=== PATIENT | male | born 1995 | race Native Hawaiian/Other Pacific Islander ===

== ENCOUNTER 2017-03-19 21:12 | Emergency (ER) | payer SELFPAY ==
[2017-03-19] MEDS ORDERED: Sodium Chloride 0.9% 1,000 ML IV ONE (21:43)
[2017-03-19] MEDS ORDERED: Sodium Chloride 0.9% 1,000 ML ONE (21:55)
[2017-03-19 22:07] LABS: URINE BILIRUBIN NEGATIVE (NEGATIVE); URINE BLOOD NEGATIVE (NEGATIVE); URINE CLARITY Clear (Clear); URINE COLOR Colorless (YELLOW); URINE GLUCOSE (UA) NORMAL (Normal); URINE LEUKOCYTE ESTERASE NEG Leu/uL (Negative); URINE NITRATE NEGATIVE (NEGATIVE); URINE PROTEIN NEGATIVE (NEGATIVE); URINE UROBILINOGEN NORMAL mg/dL (0.2-1.0)
[2017-03-19 22:18] LABS: BASO # 0.1 K/uL (0.0-0.2); BASO % 0.6 % (0.0-2.0); EOS # 0.1 K/uL (0.0-0.7); EOS % 1.7 % (0.0-4.0); HEMOGLOBIN 15.3 g/dL (12.0-18.0); LYMPH # 1.8 K/uL (1.0-4.3); LYMPH % 21.3 % (20.0-40.0); MEAN CELL VOLUME 84.7 fL (80.0-94.0); MEAN CORPUSCULAR HEMOGLOBIN 28.6 pg (27.0-31.0); MEAN CORPUSCULAR HGB CONC 33.7 g/dL (33.0-37.0); MEAN PLATELET VOLUME 7.4 fL (7.2-11.7); MONO # 0.8 K/uL (0.0-0.8); MONO % 9.1 % (0.0-10.0); NEUT # 5.7 K/uL (1.8-7.0); NEUT % 67.3 % (50.0-75.0); NRBC % 0.1 % (0.0-2.0); RBC 5.37 Mil/uL (4.40-5.90); RED CELL DISTRIBUTION WIDTH 12.4 % (11.5-14.5); WHITE BLOOD COUNT 8.4 K/uL (4.8-10.8)
[2017-03-19 22:19] LABS: BARBITURATES, UR NEGATIVE (NEGATIVE); BENZODIAZEPINES, UR NEGATIVE (NEGATIVE); OPIATES, UR NEGATIVE (NEGATIVE); PHENCYCLIDINE, UR NEGATIVE (NEGATIVE)
[2017-03-19 22:30] LABS: BLOOD UREA NITROGEN 9 mg/dL (9-20); CALCIUM 8.9 mg/dl (8.6-10.4); GFR AFRICAN-AMERICAN > 60; GFR NON-AFRICAN AMERICAN > 60
[2017-03-19 23:05] VITALS: BP 113/68; PULSE 74; RESP 16; TEMP 97.6; O2SAT 98
--- NOTE | 2017-03-19 23:26 | C.PDOC ---
History Of Present Illness 21 yo male come in for evaluation of intermittent headache for past few weeks. Pt sts, developed some chest pain early today associated with extreme fatigue. Pt also reports, some tingling over his B/L feet. MOm at bedside, reports, " he was not sleeping well", also reports hx of anxiety. As per mom, pt has intermittent CP for past few years. Mom sts, pt was seen by PMD year ago when EKG, ECHO performed with normal results. Otherwise, pt denies recent illness, fever, chills, denies severe headache, dizziness, visual changes, focal deficits , neck pain, drooling, SOB, radiation of CP, palpitation, diaphoresis, abd. pain , V/Dm back pain, UTI sx, denies drug use. Ambulate to Ed for evaluation, not in any apparent distress. Time Seen by Provider: 03/19/17 21:33 Chief Complaint (Nursing): Headache History Per: Patient, Family Past Medical History Reviewed: Historical Data, Nursing Documentation, Vital Signs Vital Signs: Last Vital Signs Temp 97.6 F 03/19/17 23:04 Pulse 74 03/19/17 23:04 Resp 16 03/19/17 23:04 BP 113/68 03/19/17 23:04 Pulse Ox 98 03/19/17 23:04 - Medical History PMH: No Chronic Diseases Surgical History: No Surg Hx Family History: States: No Known Family Hx - Social History Hx Alcohol Use: No Hx Substance Use: No - Immunization History Hx Tetanus Toxoid Vaccination: No Hx Influenza Vaccination: No Hx Pneumococcal Vaccination: No Review Of Systems Except As Marked, All Systems Reviewed And Found Negative. Constitutional: Negative for: Fever, Chills Eyes: Negative for: Vision Change ENT: Negative for: Ear Discharge, Nose Discharge, Nose Congestion, Throat Pain Cardiovascular: Positive for: Chest Pain. Negative for: Palpitations, Orthopnea , Edema, Light Headedness Respiratory: Negative for: Cough, Shortness of Breath, Wheezing Gastrointestinal: Negative for: Nausea, Vomiting, Abdominal Pain, Diarrhea Genitourinary: Negative for: Dysuria, Frequency Musculoskeletal: Negative for: Neck Pain, Back Pain Neurological: Positive for: Numbness. Negative for: Altered Mental Status, Dizziness Physical Exam - Physical Exam Appears: Well, Non-toxic, No Acute Distress Skin: Normal Color, Warm, Dry, No Rash Head: Normacephalic Eye(s): bilateral: PERRL Ear(s): Bilateral: Normal Nose: No Flaring Oral Mucosa: Moist, No Drooling Tongue: Normal Appearing Lips: Normal Appearing Throat: No Erythema, No Exudate, No Drooling Neck: Trachea Midline, Supple, Other ((-) meningeal sign) Cardiovascular: Rhythm Regular, No Murmur, No JVD Respiratory: No Decreased Breath Sounds, No Accessory Muscle Use, No Stridor, No Wheezing Gastrointestinal/Abdominal: Soft, No Tenderness, No Distention, No Guarding Back: No CVA Tenderness, No Vertebral Tenderness Extremity: Normal ROM, No Pedal Edema, No Deformity, No Swelling Neurological/Psych: Oriented x3, Normal Speech, Normal Cognition, Normal Motor, Normal Sensation, Normal Reflexes ED Course And Treatment - Laboratory Results Result Diagrams: 03/19/17 22:09 03/19/17 22:09 Lab Interpretation: Normal ECG: Interpreted By Me, Viewed By Me (and ) ECG Rhythm: Sinus Rhythm ECG Interpretation: Normal O2 Sat by Pulse Oximetry: 98 Pulse Ox Interpretation: Normal - Radiology CXR: Interpreted by Me, Viewed By Me CXR Interpretation: Yes: No Acute Disease Progress Note: On re-evaluation, pt is afebrile, hemodynamicaly stable. Non- toxic. Ambulatoyr in ED with stable giat. PulseOx 98% RA Neck: Supple, (-) JVD, (-) carotid bruits B/L. ENT: no acute findings. Lungs: CTA B/L, BS equal B/L. CVS: (+)S1S2, reg. Abd: benign, (-) guaridng, (-) rebound. neuorlogical intact. Blood work review and appears normal. CXR, EKG_ normal study, Influenza (-). Pt and mom advised. REf. to F/u with PMD in 2-3 days for re-eavl. return if any new changes. Disposition Counseled Patient/Family Regarding: Studies Performed, Diagnosis, Need For Followup - Disposition Referrals: [facility] [Outside] Disposition: HOME/ ROUTINE Disposition Time: 23:23 Condition: STABLE Additional Instructions: FOLLOW UP WITH PMD IN 2-3 DAYS FOR RE-EVALUATION. RETURN TO ED IF ANY WORSENING OR NEW CHANGES. Instructions: Fatigue (ED) Forms: [employer] (Honduran) - Clinical Impression Clinical Impression: Headache, Fatigue
--- NOTE | 2017-03-20 09:12 | RAD ---
Chest x-ray two views History: Shortness of breath. Comparison: None available. Findings: No focal infiltrate or effusion. Heart size within normal limits. Impression: No focal infiltrate or effusion.
--- NOTE | 2017-03-20 14:58 | CARD ---
APPROVED REPORT EKG Measurement Heart [id number] CO 150P47 [id number] <Conclusion> Normal sinus rhythm Right axis deviation Abnormal ECG
== END 2017-03-19 23:56 | disposition home or self-care (01) ==
LOC: C.ER 21:12
DX: R51 Headache (principal); R53.83 Other fatigue
CPT/HCPCS: 71046; 80048; 81001; 84484; 85025; 87804; 93005; 99285; G0480; J7040

== ENCOUNTER 2017-07-09 11:08 | Emergency (ER) | payer SELFPAY ==
[2017-07-09 11:18] VITALS: BP 123/73; PULSE 73; RESP 18; TEMP 98.4; O2SAT 98
--- NOTE | 2017-07-09 12:30 | C.PDOC ---
History Of Present Illness 22 y/o male presents to the ED complaining of left parasternal chest discomfort , onset today. Patient states pain has been intermittent for the past several months. He was evaluated for the same complaint in March. Of note, patient plays video games nightly but denies activities such as manual labor or heavy lifting. Denies any associated palpitations, SOB, dizziness, headache, visual changes, or leg pain/swelling. Time Seen by Provider: 07/09/17 12:22 Chief Complaint (Nursing): Chest Pain History Per: Patient History/Exam Limitations: no limitations Onset/Duration Of Symptoms: Intermittent Episodes Current Symptoms Are (Timing): Still Present Past Medical History Reviewed: Historical Data, Nursing Documentation, Vital Signs Vital Signs: Last Vital Signs Temp 98.4 F 07/09/17 11:15 Pulse 73 07/09/17 11:15 Resp 18 07/09/17 11:15 BP 123/73 07/09/17 11:15 Pulse Ox 98 07/09/17 15:32 - Medical History PMH: No Chronic Diseases Surgical History: No Surg Hx Family History: States: No Known Family Hx - Social History Hx Tobacco Use: No Hx Alcohol Use: No Hx Substance Use: No - Immunization History Hx Tetanus Toxoid Vaccination: No Hx Influenza Vaccination: No Hx Pneumococcal Vaccination: No Review Of Systems Except As Marked, All Systems Reviewed And Found Negative. Eyes: Negative for: Vision Change Cardiovascular: Positive for: Chest Pain. Negative for: Palpitations Respiratory: Negative for: Shortness of Breath Musculoskeletal: Negative for: Leg Pain Neurological: Negative for: Headache, Dizziness Physical Exam - Physical Exam Appears: Non-toxic, No Acute Distress, Other (morbidly obese) Skin: Normal Color, Warm, Dry Head: Atraumatic, Normacephalic Eye(s): bilateral: Normal Inspection, PERRL, EOMI Neck: Normal ROM, Supple Chest: Tenderness (to the left parasternal area, near T2) Cardiovascular: Rhythm Regular, No Murmur Respiratory: Normal Breath Sounds, No Accessory Muscle Use, No Rales, No Rhonchi , No Wheezing Gastrointestinal/Abdominal: Soft, No Tenderness, No Distention Extremity: Bilateral: Atraumatic, No Pedal Edema, Normal Color And Temperature, Normal ROM Pulses: Left Dorsalis Pedis: Normal, Right Dorsalis Pedis: Normal Neurological/Psych: Oriented x3, Normal Speech ED Course And Treatment ECG: Interpreted By Me, Viewed By Me ECG Rhythm: Sinus Rhythm ECG Interpretation: No Changes From Prior Rate From EC O2 Sat by Pulse Oximetry: 98 (RA) Pulse Ox Interpretation: Normal Medical Decision Making Medical Decision Making: Initial Plan: * EKG * PO Motrin EKG is normal. Pt counseled regarding dx of costochondritis. Advised to apply ice packs 1/2 hour per hour, nothing hot Motrin 400-600 mg every 6 hours as needed Athletic sports 5 days/week no TV/Video games after 7PM Benadryl 25 mg @ night to help sleep outpatient follow-up in our [facility] as need. Disposition Doctor Will See Patient In The: Office Counseled Patient/Family Regarding: Studies Performed, Diagnosis - Disposition Referrals: [facility] at [facility] [Outside] Disposition: HOME/ ROUTINE Disposition Time: 12:29 Condition: GOOD Additional Instructions: chest wall discomfort: ice pack 1/2 hour per hour, nothing hot no hot showers Motrin 400-600 mg every 6 hours Obesity: Regular athletic activities 5 days/week Insomnia No TV/Video games after 7PM Benadryl 25 mg @ night as needed for sleep adhere to a regular sleep cycle. Instructions: Costochondritis Forms: [facility] ([employer]) - Clinical Impression Clinical Impression: Chest discomfort - Scribe Statement The provider has reviewed the documentation as recorded by the Scribe (Christiane Turcios) Provider Attestation: All medical record entries made by the Scribe were at my direction and personally dictated by me. I have reviewed the chart and agree that the record accurately reflects my personal performance of the history, physical exam, medical decision making, and the department course for this patient. I have also personally directed, reviewed, and agree with the discharge instructions and disposition.
--- NOTE | 2017-07-10 11:57 | CARD ---
APPROVED REPORT EKG Measurement Heart [id number] CO 144P31 [id number] <Conclusion> Normal sinus rhythm Right axis deviation Abnormal ECG
== END 2017-07-09 12:35 | disposition home or self-care (01) ==
LOC: C.ER 11:08
DX: R07.9 Chest pain, unspecified (principal)